=== PATIENT | female | born 1980 | race African-American/Black ===

== ENCOUNTER 2017-02-28 15:37 | Emergency (ER) | payer BC, MEDICAID ==
--- NOTE | 2017-02-28 16:01 | ER Document Report ---
ED Medical Screen (RME) - General Chief Complaint: Vag Bleeding, +preg <12wks Stated Complaint: VAGINAL BLEEDING Time Seen by Provider: 02/28/17 15:57 Notes: 36-year-old female patient reports she is 12 weeks , had a gush of dark red blood this morning with some cramps. I have greeted and performed a rapid initial assessment of this patient. A comprehensive ED assessment and evaluation of the patient, analysis of test results and completion of the medical decision making process will be conducted by additional ED providers. TRAVEL OUTSIDE OF THE [place] IN LAST 30 DAYS: No - Related Data Allergies/Adverse Reactions: No Known Allergies Allergy (Verified 02/28/17 15:44) Past Medical History Renal/ Medical History: Denies: Hx Peritoneal Dialysis Physical Exam - Vital signs Vitals: Temp Pulse Resp BP Pulse Ox 98.3 F 98 20 137/65 H 100 02/28/17 15:44 02/28/17 15:44 02/28/17 15:44 02/28/17 15:44 02/28/17 15:44 Course - Vital Signs Vital signs: Temp Pulse Resp BP Pulse Ox 98.3 F 98 20 137/65 H 100 02/28/17 15:44 02/28/17 15:44 02/28/17 15:44 02/28/17 15:44 02/28/17 15:44
[2017-02-28 17:00] LABS: HGB HCT DIFFERENCE -3.7; MEAN CORPUSCULAR HGB CONC 28.3 g/dL (32.0-36.0); RED BLOOD COUNT 3.92 10^6/uL (3.72-5.28); RED CELL DISTRIBUTION WIDTH 22.4 % (11.5-14.0); WHITE BLOOD COUNT 11.4 10^3/uL (4.0-10.5)
[2017-02-28 17:09] LABS: APPEARANCE,URINE CLEAR; BILIRUBIN,URINE NEGATIVE (NEGATIVE); GLUCOSE, URINE NEGATIVE (NEGATIVE); KETONES,URINE NEGATIVE (NEGATIVE); LEUKOCYTE ESTERASE,URINE NEGATIVE (NEGATIVE); NITRITE,URINE NEGATIVE (NEGATIVE); PROTEIN,URINE NEGATIVE (NEGATIVE); URINE SPECIFIC GRAVITY 1.003; UROBILINOGEN,URINE NEGATIVE mg/dL (<2.0)
[2017-02-28 17:11] LABS: HEMOGLOBIN 7.1 g/dL (12.0-15.5)
[2017-02-28 17:19] LABS: MEAN CORPUSCULAR VOLUME 64 fl (80-97)
[2017-02-28 17:20] LABS: ALANINE AMINOTRANSFERASE 23 U/L (9-52); ALKALINE PHOSPHATASE 74 U/L (38-126); ANION GAP 13 (5-19); ASPARTATE AMINO TRANSFERASE 22 U/L (14-36); BILIRUBIN,DIRECT 0.2 mg/dL (0.0-0.4); BILIRUBIN,TOTAL 0.2 mg/dL (0.2-1.3); BLOOD UREA NITROGEN 9 mg/dL (7-20); CALCIUM 9.4 mg/dL (8.4-10.2); CARBON DIOXIDE 21 mmol/L (22-30); CHLORIDE 104 mmol/L (98-107); CREATININE RESULT 0.69 mg/dL (0.52-1.25); GLUCOSE 94 mg/dL (75-110); POTASSIUM 3.9 mmol/L (3.6-5.0); SODIUM 137.8 mmol/L (137-145); TOTAL PROTEIN 7.7 g/dL (6.3-8.2)
[2017-02-28 17:23] LABS: BASOPHILS % (MANUAL) 0 % (0-2); EOSINOPHILS % (MANUAL) 0 % (0-6); LYMPHOCYTES % (MANUAL) 19 % (13-45); TOTAL CELLS COUNTED 100
[2017-02-28 17:24] LABS: MICROCYTOSIS 3+
--- NOTE | 2017-02-28 17:35 | RADIOLOGY REPORT (SQ) ---
EXAM DESCRIPTION: U/S OB TRANSVAGINAL W/O DOP COMPLETED DATE/TIME: 02/28/2017 5:22 pm REASON FOR STUDY: 12 wks, bleeding COMPARISON: None. TECHNIQUE: Transabdominal static and realtime grayscale images acquired of the pelvis. Additional se lected spectral and color Doppler images recorded. All images stored on PACs. bHCG: Not applicable. LIMITATIONS: None. FINDINGS: FETUS: Living intrauterine . EGA: 12 weeks 4 days WALESKA: 09/08/2017 FHR: 173 beats per minute. SUBCHORIONIC BLEED: No SIZE OF BLEED: Not applicable. UTERUS: No masses. 12.8 x 9.1 x 8.2 cm. CERVICAL LENGTH: 4.1 cm Closed. RIGHT ADNEXA: Normal ovary. 34 x 33 x 22 mm. No adnexal free fluid. No adnexal masses. LEFT ADNEXA: Normal ovary. 26 x 22 x 17 mm. No adnexal free fluid. No adnexal masses. FREE FLUID: None. OTHER: No other significant finding. IMPRESSION: LIVING INTRAUTERINE . EGA 12 weeks 4 days. Trimester of : First - 0 to 13 weeks. TECHNICAL DOCUMENTATION: JOB ID: [id number] Veronica- All Rights Reserved
[2017-02-28 17:37] LABS: ANISOCYTOSIS 3+; HYPOCHROMASIA 1+; OVALOCYTES SLIGHT; POIKILOCYTOSIS SLIGHT; POLYCHROMASIA SLIGHT; SCHISTOCYTES SLIGHT; TARGET CELLS SLIGHT
--- NOTE | 2017-02-28 19:43 | ER Document Report ---
ED GI/ - General Chief Complaint: Vag Bleeding, +preg <12wks Stated Complaint: VAGINAL BLEEDING Time Seen by Provider: 02/28/17 15:57 Mode of Arrival: Ambulatory Information source: Patient Notes: Patient is currently and is 12 weeks . Patient states that this afternoon she had some lower abdominal cramping and noticed some vaginal bleeding which she had brown colored blood. Patient states that she only responded and had a little bit of blood on the toilet paper but not any significant amount of bleeding. Patient states that she has had cramping off and on today. Patient recently saw her LEGAL OFFICE ADMINISTRATOR doctor 2 days ago and states she had outpatient lab work that was good. TRAVEL OUTSIDE OF THE [place] IN LAST 30 DAYS: No - HPI Patient complains to provider of: Pelvic pain, , Vaginal bleeding Onset: This afternoon Timing/Duration: Waxing and waning Quality of pain: Cramping Pain Level: 1 Context: Location: Pelvis Vaginal bleeding (Compared to normal period): Spotting Menstrual period history: Associated symptoms: denies: Fever, Nausea, Urinary hesitancy, Urinary frequency , Urinary retention, Vomiting Exacerbated by: Denies Relieved by: Denies Similar symptoms previously: No Recently seen / treated by doctor: Yes - Related Data Allergies/Adverse Reactions: No Known Allergies Allergy (Verified 02/28/17 15:44) Past Medical History - General Information source: Patient - Social History Smoking Status: Current Every Day Smoker Chew tobacco use (# tins/day): No Frequency of alcohol use: None Drug Abuse: None Occupation: [employer] Lives with: Family Family History: Reviewed & Not Pertinent Patient has suicidal ideation: No Patient has homicidal ideation: No - Medical History Medical History: Negative Renal/ Medical History: Denies: Hx Peritoneal Dialysis Past Surgical History: Reports: Hx Section - Immunizations Hx Diphtheria, Pertussis, Tetanus Vaccination: No Review of Systems - Review of Systems Constitutional: Other - fatigue. denies: Fever, Recent illness EENT: No symptoms reported Cardiovascular: No symptoms reported. denies: Chest pain, Palpitations Respiratory: No symptoms reported. denies: Cough, Short of breath Gastrointestinal: Abdominal pain - cramping. denies: Vomiting Genitourinary: No symptoms reported. denies: Dysuria Female Genitourinary: , Vaginal bleeding Musculoskeletal: No symptoms reported. denies: Back pain Skin: No symptoms reported Hematologic/Lymphatic: No symptoms reported Neurological/Psychological: No symptoms reported Physical Exam - Vital signs Vitals: Temp Pulse Resp BP Pulse Ox 98.3 F 98 20 137/65 H 100 02/28/17 15:44 02/28/17 15:44 02/28/17 15:44 02/28/17 15:44 02/28/17 15:44 - General General appearance: Appears well, Alert In distress: None - HEENT Head: Normocephalic, Atraumatic Eyes: Normal Nasal: Normal Mouth/Lips: Normal Pharynx: Normal Neck: Normal, Supple. No: Lymphadenopathy - Respiratory Respiratory status: No respiratory distress Chest status: Nontender Breath sounds: Normal. No: Rales, Rhonchi, Stridor, Wheezing Chest palpation: Normal - Cardiovascular Rhythm: Regular Heart sounds: S1 appreciated, S2 appreciated Murmur: No - Abdominal Inspection: Normal, Gravid female Distension: No distension Bowel sounds: Normal Tenderness: Nontender Organomegaly: No organomegaly - Back Back: Normal, Nontender. No: CVA tenderness - Extremities General upper extremity: Normal inspection, Normal strength General lower extremity: Normal inspection, Normal strength - Neurological Neuro grossly intact: Yes Cognition: Normal [place] Coma Scale Eye Opening: Spontaneous [place] Coma Scale Verbal: Oriented Mariano Coma Scale Motor: Obeys Commands [place] Coma Scale Total: 15 - Psychological Associated symptoms: Normal affect, Normal mood - Skin Skin Temperature: Warm Skin Moisture: Dry Skin Color: Normal Course - Re-evaluation Re-evalutation: 02/28/17 20:[address] myles who advises consultation with ob non linear editor. dr cary paiz in a procedure for the next hour, soft sugar operator head advises calling back and consulting with dr townsend in 1 hour. 02/28/17 21:[address] Townsend per the scrub RN who was relaying the message. Dr Townsend does not advise transfusion here, but would like pt discharged on iron and vit c twice a day and to f/u in the office friday to plan hematology referral. 03/01/17 07:33 - Vital Signs Vital signs: Temp Pulse Resp BP Pulse Ox 98.3 F 76 16 134/82 H 100 02/28/17 19:03 02/28/17 19:03 02/28/17 19:03 02/28/17 19:03 02/28/17 19:03 - Laboratory Result Diagrams: 02/28/17 16:42 02/28/17 16:42 Laboratory results interpreted by me: 02/28/17 02/28/17 16:42 16:42 WBC 11.4 H Hgb 7.1 L Hct 25.0 L MCV 64 L MCH 18.0 L MCHC 28.3 L RDW 22.4 H Abs Neuts (Manual) 8.6 H Carbon Dioxide 21 L 03/01/17 07:33 Labs- Entire Visit 02/28/17 02/28/17 02/28/17 16:42 16:42 16:42 WBC 11.4 H RBC 3.92 Hgb 7.1 L Hct 25.0 L MCV 64 L MCH 18.0 L MCHC 28.3 L RDW 22.4 H Plt Count 285 Total Counted 100 Seg Neutrophils % Not Reportable Seg Neuts % (Manual) 75 Lymphocytes % Not Reportable Lymphocytes % (Manual) 19 Atypical Lymphs % 2 Monocytes % Not Reportable Monocytes % (Manual) 4 Eosinophils % Not Reportable Eosinophils % (Manual) 0 Basophils % Not Reportable Basophils % (Manual) 0 Absolute Neutrophils Not Reportable Abs Neuts (Manual) 8.6 H Absolute Lymphocytes Not Reportable Abs Lymphs (Manual) 2.4 Absolute Monocytes Not Reportable Abs Monocytes (Manual) 0.5 Absolute Eosinophils Not Reportable Absolute Eos (Manual) 0.0 Absolute Basophils Not Reportable Abs Basophils (Manual) 0.0 Large Platelets PRESENT Platelet Comment ADEQUATE Polychromasia SLIGHT Hypochromasia 1+ Poikilocytosis SLIGHT Anisocytosis 3+ Microcytosis 3+ Target Cells SLIGHT Ovalocytes SLIGHT Schistocytes SLIGHT Sodium 137.8 Potassium 3.9 Chloride 104 Carbon Dioxide 21 L Anion Gap 13 BUN 9 Creatinine 0.69 Est GFR ( Amer) > 60 Est GFR (Non-Af Amer) > 60 Glucose 94 Calcium 9.4 Total Bilirubin 0.2 Direct Bilirubin 0.2 Indirect Bilirubin Not Reportable Neonat Total Bilirubin Not Reportable AST 22 ALT 23 Alkaline Phosphatase 74 Total Protein 7.7 Albumin 4.0 Urine Color Urine Appearance Urine pH Ur Specific [place] Urine Protein Urine Glucose (UA) Urine Ketones Urine Blood Urine Nitrite Urine Bilirubin Urine Urobilinogen Ur Leukocyte Esterase Urine WBC (Auto) Urine RBC (Auto) Squamous Epi Cells Auto Urine Ascorbic Acid Blood Type O POSITIVE Rhogam Indicated RHOGAM NOT INDICATED 02/28/17 16:42 WBC RBC Hgb Hct MCV MCH MCHC RDW Plt Count Total Counted Seg Neutrophils % Seg Neuts % (Manual) Lymphocytes % Lymphocytes % (Manual) Atypical Lymphs % Monocytes % Monocytes % (Manual) Eosinophils % Eosinophils % (Manual) Basophils % Basophils % (Manual) Absolute Neutrophils Abs Neuts (Manual) Absolute Lymphocytes Abs Lymphs (Manual) Absolute Monocytes Abs Monocytes (Manual) Absolute Eosinophils Absolute Eos (Manual) Absolute Basophils Abs Basophils (Manual) Large Platelets Platelet Comment Polychromasia Hypochromasia Poikilocytosis Anisocytosis Microcytosis Target Cells Ovalocytes Schistocytes Sodium Potassium Chloride Carbon Dioxide Anion Gap BUN Creatinine Est GFR ( Amer) Est GFR (Non-Af Amer) Glucose Calcium Total Bilirubin Direct Bilirubin Indirect Bilirubin Neonat Total Bilirubin AST ALT Alkaline Phosphatase Total Protein Albumin Urine Color COLORLESS Urine Appearance CLEAR Urine pH 7.0 Ur Specific [place] 1.003 Urine Protein NEGATIVE Urine Glucose (UA) NEGATIVE Urine Ketones NEGATIVE Urine Blood NEGATIVE Urine Nitrite NEGATIVE Urine Bilirubin NEGATIVE Urine Urobilinogen NEGATIVE Ur Leukocyte Esterase NEGATIVE Urine WBC (Auto) 1 Urine RBC (Auto) 0 Squamous Epi Cells Auto <1 Urine Ascorbic Acid NEGATIVE Blood Type Rhogam Indicated Discharge - Discharge Clinical Impression: Vagina bleeding Anemia Qualifiers: Anemia type: unspecified type Qualified Code(s): D64.9 - Anemia, unspecified Condition: Stable Disposition: HOME, SELF-CARE Instructions: Anemia ([facility]), Bleeding During Early ([facility]) Additional Instructions: follow up with your LEGAL OFFICE ADMINISTRATOR provider Friday for a recheck Return to the ER for any new or worsening symptoms Take vitamin C twice a day. Prescriptions: Ferrous Sulfate [Feosol] 325 mg PO BID #60 tablet Forms: Return to Work Referrals: [facility] [Provider Group] - 03/03/17
[2017-02-28] MEDS ORDERED: ASCORBIC ACID 500 MG TABLET PO ONE (22:30)
[2017-02-28] MEDS ORDERED: FERROUS SULFATE 325 MG TABLET PO ONE (22:30)
[2017-03-04 09:06] LABS: PATH REVIEW PATHOLOGIST REVIEWED
[2017-03-09 02:42] VITALS: BP 136/69
== END 2017-02-28 23:39 | disposition home or self-care (01) ==
LOC: ER 15:37
DX: O46.91 Antepartum hemorrhage, unspecified, first trimester (principal); D64.9 Anemia, unspecified; R10.30 Lower abdominal pain, unspecified; F17.200 Nicotine dependence, unspecified, uncomplicated
CPT/HCPCS: 36415; 76817; 80053; 81001; 85025; 86900; 86901; 99284

== ENCOUNTER 2017-08-15 09:45 | Outpatient (CLI) | payer BC, MEDICAID ==
--- NOTE | 2017-08-15 10:22 | Non Stress Test Report ---
Non Stress Test Datetime Report Generated by CPN: 08/15/2017 10:21 INDICATION Indication for Study: Ordered by Provider; Other Indication for Study (NST) Other: GDM MONITORING Monitor Explained: Monitor Explained; Test Explained; Patient Verbalized Understanding Time on Monitor: 08/15/2017 09:55 Time off Monitor: 08/15/2017 10:17 NST Duration: 22 NST INTERVENTIONS NST Interventions: PO Hydration; Reposition Patient Physician Notified NST: Dr Deluca BABY A: [id number] BABY A Movement : Present Contraction Frequency : irregular FHR Baseline : 125 Accelerations : 15X15 Decelerations : None Variability : Moderate 6-25bpm NST Review: Meets Criteria for Reactive NST NST Review and Verified By : MELIZA PintoT Results: Reactive NST REPORT Report Trigger: Send Report
== END 2017-08-15 10:20 | disposition home or self-care (01) ==
LOC: LC 09:45
PROVIDERS: ATTEND Obstetrics & Gynecology
PROC: 4A1HXCZ Monitoring of Products of Conception, Cardiac Rate, External Approach (ICD-10-PCS; principal; 2017-08-15)
DX: O24.419 Gestational diabetes mellitus in pregnancy, unspecified control (principal); O09.523 Supervision of elderly multigravida, third trimester; Z3A.36 36 weeks gestation of pregnancy
CPT/HCPCS: 59025

== ENCOUNTER 2017-09-05 04:59 | Inpatient (IN) | payer BC, MEDICAID ==
[2017-09-03 11:53] LABS: ABSOLUTE EOSINOPHILS # (AUTO) 0.1 10^3/uL (0.0-0.6); ABSOLUTE LYMPHOCYTES (AUTO) 1.8 10^3/uL (0.5-4.7); ABSOLUTE MONOCYTES (AUTO) 0.7 10^3/uL (0.1-1.4); ABSOLUTE NEUT (AUTO) 8.8 10^3/uL (1.7-8.2); BASOPHILS % (AUTO) 0.1 % (0-2); EOSINOPHILS % (AUTO) 1.2 % (0-6); HEMATOCRIT 34.3 % (36.0-47.0); HEMOGLOBIN 11.3 g/dL (12.0-15.5); HGB HCT DIFFERENCE -0.4; LYMPHOCYTES % (AUTO) 15.6 % (13-45); MEAN CORPUSCULAR VOLUME 85 fl (80-97); MONOCYTES % (AUTO) 6.2 % (3-13); RED BLOOD COUNT 4.04 10^6/uL (3.72-5.28); RED CELL DISTRIBUTION WIDTH 14.4 % (11.5-14.0); SEGMENTED NEUTROPHILS % (AUTO) 76.9 % (42-78); WHITE BLOOD COUNT 11.4 10^3/uL (4.0-10.5)
[2017-09-03 11:59] LABS: AMORPHOUS SEDIMENT,URINE TRACE /HPF; APPEARANCE,URINE CLOUDY; BILIRUBIN,URINE NEGATIVE (NEGATIVE); GLUCOSE, URINE NEGATIVE (NEGATIVE); KETONES,URINE NEGATIVE (NEGATIVE); LEUKOCYTE ESTERASE,URINE NEGATIVE (NEGATIVE); NITRITE,URINE NEGATIVE (NEGATIVE); PROTEIN,URINE NEGATIVE (NEGATIVE); URINE SPECIFIC GRAVITY 1.016; UROBILINOGEN,URINE NEGATIVE mg/dL (<2.0)
[2017-09-03 12:51] LABS: URINE BARBITURATES SCREEN NEGATIVE; URINE METHADONE SCREEN NEGATIVE; URINE OPIATES LOW NEGATIVE; URINE PHENCYCLIDINE SCREEN NEGATIVE
[2017-09-05] MEDS ORDERED: LACTATED RINGERS 1000 ML IV PRN (05:00)
[2017-09-05] MEDS ORDERED: LIDOCAINE 0.5% INJ-PF (5 MG/ML) 50 ML SDV SUBCUT PRN (05:00)
[2017-09-05] MEDS ORDERED: CEFAZOLIN 1 GM/D5W RTU 1 GM/50 ML RTUPB IV PRN (05:00)
[2017-09-05] MEDS ORDERED: RINGERS SOLUTION,LACTATED 1,000 ML IV PRN ×2 (05:00→08:57)
[2017-09-05] MEDS ORDERED: OXYTOCIN/NORMAL SALINE 20 UNIT/1,000 ML RTUINJ ONE ×2 (07:44→10:26)
[2017-09-05] MEDS ORDERED: MIDAZOLAM 2 MG/2 ML INJ ONE (07:44)
[2017-09-05] MEDS ORDERED: EPHEDRINE SULFATE INJ 50 MG/1 ML AMPULE ONE (07:44)
[2017-09-05] MEDS ORDERED: OXYCODONE-ACETAMINOPHEN 5-325 MG TABLET PO PRN ×4 (07:54→08:57)
[2017-09-05] MEDS ORDERED: MEPERIDINE HCL/PF INJ 25 MG/1 ML DISP.SYRIN IV PRN (07:54)
[2017-09-05] MEDS ORDERED: DIPHENHYDRAMINE HCL 50 MG/ML VIAL IV PRN (07:54)
[2017-09-05] MEDS ORDERED: PROMETHAZINE HCL INJ 25 MG/1 ML VIAL IV PRN ×3 (07:54→08:57)
[2017-09-05] MEDS ORDERED: MORPHINE SULFATE 10 MG/ML INJ IV PRN ×2 (07:54→08:57)
[2017-09-05] MEDS ORDERED: FENTANYL CITRATE INJ/PF 100 MCG/2 ML AMPUL IV PRN ×3 (07:54)
--- NOTE | 2017-09-05 08:54 | OPERATIVE REPORT E ---
Operative Report NAME: TIFFANIE CID : [id number] AGE: 37Y DATE OF SURGERY: 09/05/2017 ROOM: 227 PREOPERATIVE DIAGNOSIS: IUP at 39+ weeks, previous , undesired fertility. POSTOPERATIVE DIAGNOSIS: IUP at 39+ weeks, previous , undesired fertility. PROCEDURE: Low-transverse hysterotomy section with [place] tubal ligation. SURGEON: JAMES HAZEL M.D. AERIAL LINEMAN: Rhiannon Bob, director medical surgical. ANESTHESIA: Dr. Medeiros with a spinal. FINDINGS: Male in cephalic presentation with Apgars of 7 and 8. Weight is 7 pounds 9 ounces and length 19.5 inches long. Mild filmy adhesions on the uterus. Thick meconium. ESTIMATED BLOOD LOSS: 600 mL. COMPLICATIONS: None. SPECIMENS REMOVED: Bilateral fallopian tubes. PROCEDURE IN DETAIL: The patient was taken to the operating room and prepared and draped in normal sterile fashion in a supine position with a leftward tilt. A transverse skin incision was made with a scalpel and carried through to the underlying layer of fascia with the same scalpel. Fascia was excised in the midline and extended laterally with Dodge scissors. Rectus muscle and the fascia were bluntly and the rectus muscle was divided. Peritoneal cavity was entered bluntly with good visualization of the bladder and the uterus. The bladder blade was inserted and the hysterotomy was nicked with a scalpel and extended laterally with surgeon finger fracture. The infant was then delivered atraumatically. The nose and mouth were suctioned with a suction bulb, the cord was clamped and cut, and the infant was handed off to awaiting pediatricians. The cord blood was collected and placenta was removed manually. Uterus was exteriorized and cleared of clots and debris. The hysterotomy was closed with 0 Monocryl in a running, locked fashion. A second layer and the same suture was used for imbrication to ensure hemostasis. Attention was then turned to the fallopian tubes. Both fallopian tubes were grasped with a [place] and the mesosalpinx was divided. A section of the fallopian tube was then tied off with 2 pieces of 2-0 chromic, and this intermediate section was then transected using Metzenbaums. The pedicles were then made hemostatic with Bovie cautery. The uterus was then returned to the abdomen and the peritoneal cavity was cleared of clots and debris. The pedicles were reinspected for hemostasis and they were. The rectus muscles and peritoneum were reapproximated with a mattress stitch of 2-0 chromic, the fascia was closed with 0 Vicryl, the subcutaneous layer was closed with plain catgut, and the skin was closed with 4-0 Vicryl. The patient tolerated the procedure well. Sponge, lap and needle counts were correct x2. The patient was taken to recovery in stable condition. DICTATING PHYSICIAN: JAMES HAZEL M.D. [id number] PHY#: [id number] ID: [id number] JOB#: [id number] ACCT: [id number] cc:JAMES HAZEL M.D. >
[2017-09-05] MEDS ORDERED: DIPH/PERTUSS(ACELL)/TETANUS VAC/PF 0.5 ML SYR (>=10YO) IM PRN (08:57)
[2017-09-05] MEDS ORDERED: OXYTOCIN/NORMAL SALINE 20 UNIT/1,000 ML RTUINJ IV PRN (08:57)
[2017-09-05] MEDS ORDERED: MEASLES,MUMPS&RUBELLA VACC/PF 0.5 ML VIAL SUBCUT PRN (08:57)
[2017-09-05] MEDS ORDERED: SIMETHICONE 80 MG TAB.CHEW PO PRN (08:57)
[2017-09-05] MEDS ORDERED: ACETAMINOPHEN 100 ML IV PRN (08:57)
[2017-09-05] MEDS ORDERED: ACETAMINOPHEN 325 MG TABLET PO PRN (08:57)
[2017-09-05] MEDS ORDERED: DIPHENHYDRAMINE HCL 50 MG/ML VIAL ONE (09:26)
[2017-09-05] MEDS ORDERED: EPINEPHRINE INJ 1 MG/10 ML DISP.SYRIN ONE (09:27)
[2017-09-05] MEDS ORDERED: ACETAMINOPHEN 100 ML IV ONE ×2 (09:30→09:52)
[2017-09-05] MEDS ORDERED: DEXAMETHASONE SOD PHOSPHATE INJ 4 MG/1 ML VIAL ONE (09:38)
[2017-09-05] MEDS ORDERED: KETOROLAC TROMETHAMINE INJ/PF 30 MG/1 ML SDV ONE (09:52)
[2017-09-05] MEDS: DOCUSATE SODIUM 100 MG CAPSULE PO SCH ×2 (10:51→18:06)
[2017-09-05] MEDS: PRENATAL VITAMIN W DHA CAPSULE PO SCH (10:51)
[2017-09-05] MEDS ORDERED: ONDANSETRON HCL INJ/PF 4 MG/2 ML SDV ONE (12:45)
[2017-09-05] MEDS ORDERED: KETOROLAC TROMETHAMINE INJ/PF 30 MG/1 ML SDV IV SCH (14:00)
[2017-09-05] MEDS: KETOROLAC TROMETHAMINE INJ/PF 30 MG/1 ML SDV IV SCH (18:04)
[2017-09-05] MEDS ORDERED: DIPHENHYDRAMINE HCL 50 MG/ML VIAL IV ONE (22:00)
[2017-09-06] MEDS: KETOROLAC TROMETHAMINE INJ/PF 30 MG/1 ML SDV IV SCH ×3 (02:37→17:14)
[2017-09-06 06:36] LABS: HEMATOCRIT 25.9 % (36.0-47.0); HGB HCT DIFFERENCE 0.2; MEAN CORPUSCULAR HEMOGLOBIN 28.6 pg (27.0-33.4); MEAN CORPUSCULAR HGB CONC 33.7 g/dL (32.0-36.0); MEAN CORPUSCULAR VOLUME 85 fl (80-97); RED BLOOD COUNT 3.06 10^6/uL (3.72-5.28); RED CELL DISTRIBUTION WIDTH 14.3 % (11.5-14.0); WHITE BLOOD COUNT 17.8 10^3/uL (4.0-10.5)
[2017-09-06 06:38] LABS: HEMOGLOBIN 8.7 g/dL (12.0-15.5)
--- NOTE | 2017-09-06 09:33 | PDOC PROGRESS REPORT ---
Subjective-OB Subjective: Post Delivery Day: 1 37 year old. Denies any needs at this time, states lochia is stable, pain well controlled, voiding without difficulty, tolerating diet. Physical Exam (OB) Vital Signs: Temp Pulse Resp BP Pulse Ox 98.0 F 73 16 126/59 H 99 09/06/17 00:04 09/06/17 00:04 09/06/17 00:04 09/06/17 00:04 09/06/17 00:04 Intake & Output 09/05/17 09/06/17 09/07/17 06:59 06:59 06:59 Intake Total 1000 1858 Output Total 2175 Balance 1000 -317 Weight 87.997 kg - Dressing Removed: No - opsite dressing place Incision: Dressing - Bilateral Tubal Ligation Dressing Removed: No - Lochia Lochia Amount: Scant < 10 ml Lochia Color: Rubra/Red - Abdomen Description: Tender, Soft Hernia Present: No Fundal Description: Firm, Midline Fundal Height: u/u - u/2 Objective-Diagnostic Laboratory: 09/06/17 06:12 09/06/17 06:12 WBC 17.8 H RBC 3.06 L Hgb 8.7 L D Hct 25.9 L MCV 85 MCH 28.6 MCHC 33.7 RDW 14.3 H Plt Count 135 L Assessment and Plan(PN) - Assessment and Plan (1) delivery delivered Is this a current diagnosis for this admission?: Yes Plan: routine pp care (2) Acute blood loss anemia Is this a current diagnosis for this admission?: Yes Plan: ferrous sulfate increase dietary iron - Time Spent with Patient Time with patient: Less than 15 minutes Critical Time spent with patient: Less than 15 minutes Medications reviewed and adjusted accordingly: Yes - Disposition Anticipated Discharge: Home
[2017-09-06] MEDS: DOCUSATE SODIUM 100 MG CAPSULE PO SCH ×2 (09:35→17:15)
[2017-09-06] MEDS: PRENATAL VITAMIN W DHA CAPSULE PO SCH (09:35)
[2017-09-06] MEDS: IBUPROFEN 800 MG TABLET PO SCH ×2 (17:15→23:32)
[2017-09-07] MEDS: KETOROLAC TROMETHAMINE INJ/PF 30 MG/1 ML SDV IV SCH ×2 (04:14→12:24)
[2017-09-07] MEDS: IBUPROFEN 800 MG TABLET PO SCH (05:54)
--- NOTE | 2017-09-07 09:58 | PDOC DISCHARGE SUMMARY ---
Final Diagnosis Discharge Date: 09/07/17 - Final Diagnosis (1) delivery delivered Is this a current diagnosis for this admission?: Yes (2) Acute blood loss anemia Is this a current diagnosis for this admission?: Yes Discharge Data - Discharge Medication Prescriptions: Docusate Sodium [Colace 100 mg Capsule] 100 mg PO BID #60 capsule Ibuprofen [Motrin 800 mg Tablet] 800 mg PO Q6 #60 tablet Home Medications: Vit/Iron Fum/Folic AC [ Tablet] 1 each PO DAILY 08/15/17 Ferrous Sulfate [Iron] 325 mg PO DAILY 09/03/17 Docusate Sodium [Colace 100 mg Capsule] 100 mg PO BID #60 capsule 09/07/17 Ibuprofen [Motrin 800 mg Tablet] 800 mg PO Q6 #60 tablet 09/07/17 Gestational Age: 39+ Reason(s) for Admission: Ceasarean Section-Repeat, Gestional Diabetes Procedures: NST Intrapartum Procedure(s): : Low Cervical, Transverse, Tubal Ligation - [place] Data Baby 1 Male at 1 minute: 7 at 5 minutes: 8 Weight: 3415 kg Home with Mother: Yes Complications: No - Diagnosis Test Laboratory: Temp Pulse Resp BP Pulse Ox 98.2 F 82 16 119/52 L 100 09/07/17 08:05 09/07/17 08:05 09/07/17 08:05 09/07/17 08:05 09/07/17 08:05 09/03/17 09/03/17 09/06/17 10:30 10:42 06:12 RBC 4.04 3.06 L Hgb 11.3 L 8.7 L D Hct 34.3 L 25.9 L Urine Opiates Screen NEGATIVE - Discharge information/Instructions Discharge Activity: Balance Activity w/Rest, No Driving, Pelvic Rest, Slowly Increase Activity, No tub bath Discharge Diet: Regular Disposition: HOME, SELF-CARE Follow [facility] with[facility] in: 1, Weeks
[2017-09-07 10:27] VITALS: BP 107/56
[2017-09-07] MEDS: DOCUSATE SODIUM 100 MG CAPSULE PO SCH (11:02)
[2017-09-07] MEDS: PRENATAL VITAMIN W DHA CAPSULE PO SCH (11:03)
== END 2017-09-07 13:03 | disposition home or self-care (01) | DRG 765 ==
LOC: 2S 05:07
PROVIDERS: ADMIT Obstetrics & Gynecology; ATTEND Obstetrics & Gynecology
PROC: 0UB70ZZ Excision of Bilateral Fallopian Tubes, Open Approach (ICD-10-PCS; 2017-09-05)
PROC: 4A1HXCZ Monitoring of Products of Conception, Cardiac Rate, External Approach (ICD-10-PCS; 2017-09-05)
PROC: 10D00Z1 Extraction of Products of Conception, Low, Open Approach (ICD-10-PCS; principal; 2017-09-05 07:45)
DX: O34.211 Maternal care for low transverse scar from previous cesarean delivery (principal); D62 Acute posthemorrhagic anemia; O99.02 Anemia complicating childbirth; O77.0 Labor and delivery complicated by meconium in amniotic fluid; O24.429 Gestational diabetes mellitus in childbirth, unspecified control; Z30.2 Encounter for sterilization; Z82.61 Family history of arthritis; Z28.21 Immunization not carried out because of patient refusal; Z3A.39 39 weeks gestation of pregnancy; Z37.0 Single live birth
CPT/HCPCS: 1961; 36415; 59025; 80307; 81001; 82962; 85025; 85027; 86850; 86900; 86901; 88302; 94799; J0131; J0171; J1100; J1200; J1885; J2250; J2405; J2590; J3490; J7120